=== PATIENT | female | born 1935 ===

== ENCOUNTER 2016-11-21 07:40 | Day surgery (SDC) | payer MEDICARE, MEDICAID ==
[2016-11-21] VITALS (8 sets, daily range): BP systolic 116–154; BP diastolic 64–93
[~2016-11-21] VITALS: Ht 160 cm; Wt 71.7 kg
[~2016-11-21 07:40] MED LIST: ASPIR 8181 MG ORAL; DEXILANT60 MG ORAL; FEOSOL1 TAB ORAL; FOLIC ACID1 M1 PO; JANUMET 50-1,01 EACH ORAL; VITAMIN D400 INTLU ORAL; vitamin B6 PO
[2016-11-21] MEDS ORDERED: DIOVAN160 MG ORAL (08:12)
[2016-11-21] MEDS ORDERED: LR 1000ml ONE (09:30)
[2016-11-21] MEDS ORDERED: Propofol 200mg/20ml IV ONE (09:30)
[2016-11-21] MEDS ORDERED: Sodium Chloride 10ml vial INJ ONE (09:30)
[2016-11-21] MEDS ORDERED: Lidocaine 1% MPF 10mg/ml 5ml ONE (09:30)
[2016-11-21] MEDS ORDERED: NS Irrig 1000ml ONE (09:30)
[2016-11-21] MEDS ORDERED: Betadine 10% Oint 15gm TOPIC ONE (09:30)
[2016-11-21] MEDS ORDERED: Sterile Water Irrig 1000ml IRRIG ONE (09:30)
[2016-11-21] MEDS ORDERED: Lidocaine 1% Plain 30 ml INJ ONE (09:31)
[2016-11-21] MEDS ORDERED: Bupivacaine 0.5% Inj 30 ml vial INJ ONE (09:31)
[2016-11-21] MEDS ORDERED: Dexamethasone 4mg/ml vial ONE (09:31)
[2016-11-21] MEDS ORDERED: Bacitracin Oint 15gm Tube TOPIC ONE (09:31)
--- NOTE | 2016-11-21 09:31 | Pre-Procedure Note/Attestation ---
Pre-Procedure Note/Attestation Complete Prior to Procedure Planned Procedure: left Procedure Narrative: Bunionectomy left foot Indications for Procedure Pre-Operative Diagnosis: Hallux Valgus with bunion deformity Attestation I attest that I discussed the nature of the procedure; its benefits; risks and complications; and alternatives (and the risks and benefits of such alternatives ), prior to the procedure, with the patient (or the patient's legal lead generation representative). I attest that, if there was a reasonable possibility of needing a blood transfusion, the patient (or the patient's legal lead generation representative) was given the [facility] standardized written summary, pursuant to the Diomedes Grabiel Blood Safety Act ([place] Health and Safety Code # 1645, as amended). I attest that I re-evaluated the patient just prior to the surgery and that there has been no change in the patient's H&P, except as documented below: MICHI TATE Nov 21, 2016 09:31
[2016-11-21] MEDS ORDERED: LR 1000ml 1,000 ML IVLG SCH (09:36)
[2016-11-21] MEDS ORDERED: Metoclopramide 10mg/2ml Inj IVP PRN (09:45)
[2016-11-21] MEDS ORDERED: Atropine Inj 1mg/10ml Syr IV PRN (09:45)
[2016-11-21] MEDS ORDERED: Ketorolac 30mg Inj IV PRN (09:45)
[2016-11-21] MEDS ORDERED: Hydromorphone 0.5mg/0.5ml inj IVP PRN (09:45)
[2016-11-21] MEDS ORDERED: Midazolam 2mg/2ml Inj IVP PRN (09:45)
[2016-11-21] MEDS ORDERED: Norco 5mg/325mg tab ORAL PRN (09:45)
[2016-11-21] MEDS ORDERED: oxyCODONE HCL/Acetaminophen 5/325mg ORAL PRN (09:45)
[2016-11-21] MEDS ORDERED: DiphenhydrAMINE 50mg/ml Inj IVP PRN (09:45)
[2016-11-21] MEDS ORDERED: fentaNYL 100 mcg/2 mL IV PRN (09:45)
[2016-11-21] MEDS ORDERED: LORazepam Inj 2mg/ml 1ml IV PRN (09:45)
[2016-11-21] MEDS ORDERED: Norco 7.5mg/325mg tab ORAL PRN (09:45)
[2016-11-21] MEDS ORDERED: Ketorolac 60mg Inj IV PRN (09:45)
--- NOTE | 2016-11-21 10:01 | Anethesia Preoperative Eval ---
Anesthesia Pre-op PMH/ROS General Date of Evaluation: Nov 21, 2016 Time of Evaluation: 09:36 Anesthesiologist: Evelyn ASA Score: ASA 3 Mallampati Score Class I : Soft palate, uvula, fauces, pillars visible Class II: Soft palate, uvula, fauces visible Class III: Soft palate, base of uvula visible Class IV: Only hard plate visible Mallampati Classification: Class II Surgeon: Archie Diagnosis: L Bunion Surgical Procedure: L Bunionectomy Anesthesia History: none Family History: no anesthesia problems Allergies: Coded Allergies: No Known Allergies (Unverified , 11/20/16) Medications: see eMAR Past Medical History Cardiovascular: Reports: HTN, other - HL Gastrointestinal/Genitourinary: Reports: other - Renal Lithiasis Endocrine: Reports: DM Hematology/Immune: Reports: anemia Anesthesia Pre-op Phys. Exam Physician Exam Last Vital Signs Date Time Temp Pulse Resp B/P (MAP) Pulse Ox O2 Delivery O2 Flow Rate FiO2 11/21/16 08:16 97.7 55 18 126/77 96 Room Air Constitutional: NAD Neurologic: CN 2-12 intact Cardiovascular: RRR Respiratory: CTA Gastrointestinal: S/NT/ND Airway Exam Mallampati Score: Class II MO: limited ROM: limited Teeth: missing, intact Anesthesia Pre-op A/P Risk Assessment & Plan Assessment: ASA 3 Plan: GA, BIS Status Change Before Surgery: No Pre-Antibiotics Dru Gram Ancef IV Given Within 1 Hr of Incision: Yes Time Given: 09:46 Angel Rivas MD Nov 21, 2016 10:01
--- NOTE | 2016-11-21 10:03 | Immediate Post-Op Evaluation ---
Immediate Post-Op Evalulation Immediate Post-Op Evalulation Procedure: L Bunionectomy Date of Evaluation: Nov 21, 2016 Time of Evaluation: 10:47 IV Fluids: 400 LR Blood Products: 0 Estimated Blood Loss: 10 Urinary Output: 0 Blood Pressure Systolic: 154 Blood Pressure Diastolic: 93 Pulse Rate: 65 Respiratory Rate: 16 O2 Sat by Pulse Oximetry: 100 Temperature (Fahrenheit): 97.3 Pain Score (1-10): 2 Nausea: No Vomiting: No Complications 0 Patient Status: awake, reacts, patent, none Hydration Status: adequate Dru Gram Ancef IV Given Within 1 Hr of Incision: Yes Time Given: 09:46 Angel Rivas MD Nov 21, 2016 10:03
--- NOTE | 2016-11-21 10:04 | 48 Hour Post Anesthesia Eval ---
Post Anesthesia Evaluation Procedure: L Bunionectomy Date of Evaluation: Nov 21, 2016 Time of Evaluation: 12:54 Blood Pressure Systolic: 162 0: 92 Pulse Rate: 67 Respiratory Rate: 18 Temperature (Fahrenheit): 98.1 O2 Sat by Pulse Oximetry: 99 Airway: patent Nausea: No Vomiting: No Pain Intensity: 2 Hydration Status: adequate Cardiopulmonary Status: Stable Mental Status/LOC: patient returned to baseline Follow-up Care/Observations: 0 Post-Anesthesia Complications: 0 Follow-up care needed: ready to discharge Angel Rivas MD Nov 21, 2016 10:04
--- NOTE | 2016-11-21 10:29 | Brief Operative Note ---
Immediate Post Operative Note Operative Note Pre-op Diagnosis: Hallux Valgus with bunion deformity Procedure: Srinivasan bunionectomy left foot Post-op Diagnosis: same as pre-op Surgeon: Archie Anesthesiologist: Evelyn Anesthesia: MAC Specimen: yes Complications: none Condition: stable Fluids: 250 Estimated Blood Loss: none Drains: none Implant(s) used?: No MICHI TATE Nov 21, 2016 10:29
--- NOTE | 2016-11-21 12:34 | Diagnostic Imaging Report ---
Indication: POST-OP Technique: 3 views left foot Comparison: none Findings: Patient is status post bunionectomy. Retained air from a soft tissue wound is noted. There is minimal metatarsus adductus. No acute fractures. The bones appear osteoporotic Impression: Postoperative left foot. No unusual features
--- NOTE | 2016-11-21 18:02 | Operative Note - Dictated ---
DATE OF OPERATION: 11/21/2016 SURGEON: Chance Almanza D.P.M. ANESTHESIOLOGIST: Angel Rivas M.D. ANESTHESIA: Local standby. PREOPERATIVE DIAGNOSIS: Hallux abductovalgus with bunion deformity, left foot. POSTOPERATIVE DIAGNOSIS: Hallux abductovalgus with bunion deformity, left foot. PROCEDURE PERFORMED: Srinivasan type bunionectomy, left foot. DESCRIPTION OF THE OPERATION: The patient was brought back to the operating room and was placed on the operating room table in supine position. Intravenous sedation was administered by the anesthesiologist. Local anesthesia consisting of 0.5% total of 20 mL was administered to the left foot. An ankle tourniquet was applied to the left lower extremity. The foot was prepped and draped in the usual sterile manner. An Esmarch bandage was utilized to exsanguinate the blood and the left ankle tourniquet was inflated to 250 mmHg. Attention was then directed to the left hallux where an approximately 5 to 6 cm dorsal linear skin incision was centered over the joint. The incision was deepened utilizing sharp and blunt dissection with care being taken to cauterize and ligate all bleeders. At the level of the capsule, an inverted L-type capsulotomy was performed. The capsule was reflected medially and laterally and the head of the first metatarsal was exposed. Utilizing a sagittal saw, the medial eminence was resected in total. The remaining bone was rasped smooth. The wound was copiously flushed utilizing sterile saline. At this point, utilizing a 67 blade, a lateral release was performed. The wound was copiously flushed again utilizing sterile saline. The capsule was then reapproximated utilizing 3-0 Vicryl in a simple interrupted type stitch. The subcutaneous tissue was then reapproximated utilizing 4-0 Vicryl in a buried knot type stitch. The skin was then reapproximated utilizing 4-0 nylon in a simple interrupted type stitch. The wound was dressed utilizing an Adaptic 4 x 4 and 3 inch Josh. Left ankle tourniquet was deflated and vascular supply was noted to all digits of the left foot. The patient tolerated the procedure well and left the operating room to recovery room with all vital signs stable. Chance Almanza D.P.M. DR: HAMILTON JOB#: [id number] CC:
--- NOTE | 2016-11-21 18:30 | History and Physical Report ---
DATE OF ADMISSION: 11/21/2016 PODIATRIC HISTORY AND PHYSICAL HISTORY OF PRESENT ILLNESS: This is a 81-year-old [place] patient, who is admitted today for an outpatient bunionectomy of the left foot. The patient has been complaining about left foot pain for the past several years. She noted that pain is especially severe in shoe gear and that she occasionally gets skin irritation and wounds over her left bunion area. Attempts to pad and modified shoe gear failed and the patient elected to undergo outpatient bunionectomy. PAST MEDICAL HISTORY: Remarkable for type 2 diabetes, hypertension, hyperlipidemia, obstructive sleep apnea, and gastroesophageal reflux disease. PAST SURGICAL HISTORY: Remarkable for hysterectomy and umbilical hernia repair. MEDICATIONS: Valsartan, Vascepa, Dexilant, Janumet, and Linzess. ALLERGIES: No known drug allergies. PODIATRIC EXAMINATION: VASCULAR STATUS: Dorsalis pedis and posterior tibial arteries are equally palpable measuring 2/4 bilaterally. Capillary filling time is less than 4 seconds to all digits bilaterally. Mild varicosities are noted in bilateral lower extremities. Homans sign is negative. NEUROLOGICAL EXAMINATION: Reveals intact reflexes, Achilles and patellar measuring 2/4 bilaterally. The sensation, proprioception, and vibration sensations are all intact in the bilateral lower extremity. Babinski is negative. Clonus is absent. MUSCULOSKELETAL EXAMINATION: Reveals a stage III hallux abductovalgus with bunion deformity of the left foot. The range of motion of the hallux is slightly reduced. No crepitation is noted. Mild hammertoe deformities of digits 2 through 5 are noted in bilateral foot. No other skeletal deformities are noted. DERMATOLOGICAL EXAMINATION: Reveals a pre-ulcerative lesion over the medial aspect of the first metatarsophalangeal joint. No other lesions or scars are present bilaterally. All nails are present and healthy bilaterally. ASSESSMENT: Hallux abductovalgus with bunion deformity, left foot. PLAN: The patient is admitted today for an outpatient bunionectomy of the left foot. Postoperative instructions were given to the patient. Postoperative medications were dispensed. The patient elects to proceed with surgery. Chance Almanza D.P.M. DR: HAMILTON JOB#: [id number] CC:
== END 2016-11-21 11:45 | disposition home or self-care (01) ==
LOC: SUR 07:40
DX: M20.12 Hallux valgus (acquired), left foot (principal); E78.5 Hyperlipidemia, unspecified; G47.33 Obstructive sleep apnea (adult) (pediatric); K21.9 Gastro-esophageal reflux disease without esophagitis; M20.42 Other hammer toe(s) (acquired), left foot; M20.41 Other hammer toe(s) (acquired), right foot; I13.10 Hypertensive heart and chronic kidney disease without heart failure, with stage 1 through stage 4 chronic kidney disease, or unspecified chronic kidney disease; E11.22 Type 2 diabetes mellitus with diabetic chronic kidney disease; N18.3 Chronic kidney disease, stage 3 (moderate); Z82.49 Family history of ischemic heart disease and other diseases of the circulatory system; Z90.710 Acquired absence of both cervix and uterus; Z79.82 Long term (current) use of aspirin; I25.10 Atherosclerotic heart disease of native coronary artery without angina pectoris; M19.90 Unspecified osteoarthritis, unspecified site
CPT/HCPCS: 28292; 73630; 82962; J0690; J1100; J2704; J3490; J7120; 94003; 94150